=== PATIENT | male | born 1995 | race Caucasian/White ===

== ENCOUNTER 2018-05-06 11:17 | Emergency (ER) | payer BC ==
[2018-05-06] MEDS ORDERED: DIPH/PERTUSS(ACELL)/TETANUS VAC/PF 0.5 ML SYR (>=10YO) IM ONE (12:16)
--- NOTE | 2018-05-06 12:17 | ER Document Report ---
ED General - General Chief Complaint: Laceration Stated Complaint: CUT FINGER Time Seen by Provider: 05/06/18 12:04 TRAVEL OUTSIDE OF THE [place] IN LAST 30 DAYS: No - HPI Patient complains to provider of: Pain in the hand Onset: Other - 22-year-old otherwise healthy young man who presents for evaluation of pain in the right middle finger after having a chain attached to a plow hit it injuring the end of it without any other part of his hand. Came immediately thereafter, he is right-hand dominant, does work on the farm regularly. He denies any injury elsewhere. Denies any lightheadedness chest pain shortness of breath or other symptoms. Is uncertain when his last tetanus shot was. - Related Data Allergies/Adverse Reactions: No Known Allergies Allergy (Unverified 05/06/18 11:22) Past Medical History - General Information source: Patient - Social History Smoking Status: Current Every Day Smoker Chew tobacco use (# tins/day): No Frequency of alcohol use: Rare Drug Abuse: None Family History: None Patient has suicidal ideation: No Patient has homicidal ideation: No Renal/ Medical History: Denies: Hx Peritoneal Dialysis GI Medical History: Reports: Hx Gastroesophageal Reflux Disease Psychiatric Medical History: Reports: Hx Depression Review of Systems - Review of Systems -: Yes All other systems reviewed and negative Physical Exam - Vital signs Vitals: Temp Pulse Resp BP Pulse Ox 98.5 F 64 18 128/76 H 98 05/06/18 11:31 05/06/18 11:31 05/06/18 11:31 05/06/18 11:31 05/06/18 11:31 - General General appearance: Appears well In distress: None - HEENT Head: Normocephalic Eyes: Normal Conjunctiva: Normal Cornea: Normal Extraocular movements intact: Yes - Respiratory Respiratory status: No respiratory distress Chest status: Nontender Breath sounds: Normal Chest palpation: Normal - Cardiovascular Rhythm: Regular Heart sounds: Normal auscultation Murmur: No - Abdominal Inspection: Normal Distension: No distension Tenderness: Nontender - Back Back: Normal - Extremities General upper extremity: Other - The right upper extremity shows no obvious abnormality at the shoulder, elbow, wrist, the hand has intact sensation in the ulnar median and radial distribution, strong radial pulse The third digit demonstrates macerated tissue over the aspect of the fingernail, it is held in a slightly flexed position - Neurological Neuro grossly intact: Yes Cognition: Normal Orientation: AAOx4 Rena Coma Scale Eye Opening: Spontaneous Rena Coma Scale Verbal: Oriented [place] Coma Scale Motor: Obeys Commands [place] Coma Scale Total: 15 Course - Re-evaluation Re-evalutation: 05/06/18 17:17 22-year-old male with what appears to be injury to the nailbed in his right middle finger. We will obtain x-ray, will administer tetanus shot, will reinvestigate under better lighting. Following x-ray patient has an obvious deformity to the distal phalanx of his right middle digit, there is a small piece of entrapped bone, this is likely to be treated as an open fracture given that the nailbed seems to be involved. Patient is neurovascularly intact in the distal aspect of his right middle finger, there is capillary refill despite having the base of the nailbed injury. We will plan for this patient to undergo primary repair. Following a nerve block of the right middle digit probed and investigated under clear light and blood free field the middle finger, there is avulsed tissue along the edge on either side of the finger. The nail itself has been relatively impacted at the base, the nailbed however looks relatively intact. Given that the nailbed itself appears relatively well intact we will plan to use the nail as a stent following some cleaning and irrigation. Removed the nail, replaced into the nailbed, sutured in place utilizing 4-0 Prolene. Current plan will be for this patient to follow-up with orthopedics further hand specialist at 8 AM and 3 days. He was given a prescription for Keflex. Because of the concern for potential extensor tendon injury in the third digit patient was splinted in a hyperextended position. He was encouraged to follow-up as directed and return in case of any worsening. - Vital Signs Vital signs: Temp Pulse Resp BP Pulse Ox 97.7 F 63 18 114/50 L 98 05/06/18 15:42 05/06/18 15:42 05/06/18 15:42 05/06/18 15:42 05/06/18 15:42 Procedures - Immobilization Right Mid- Finger Pre-Proc Neuro Vasc Exam: Normal Immobilizer type: Other - Hyperextension splint middle finger Performed by: Provider, PCT Post-Proc Neuro Vasc Exam: Abnormal - Numbness in the distal aspect of the digit consistent with previous nerve block Alignment checked and good: Yes - Laceration/Wound Repair Right Mid- Finger 3rd digit Wound length (cm): 2 Wound's Depth, Shape: Nail-avulsed Laceration pre-procedure: Sterile PPE donned, Betadine prep applied Anesthetic type: 1% Lidocaine w/epi Volume Anesthetic (mLs): 8 Wound explored: Clean, No foreign body removed Irrigated w/ Saline (mLs): 1,000 Wound Debrided: Moderate Wound Repaired With: Other - Nail stenting Suture Size/Type: 4:0, Prolene Number of Sutures: 4 Layer Closure?: No Post-procedure wound care: Sterile dressing applied, Splint applied Post-procedure NV exam normal: No - Decreased sensation over the edge of the fingers Complications: No Discharge - Discharge Clinical Impression: 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 You had valuation including a physical exam and x-rays. Keep the splint in place until you are seen on Tuesday. Use the pain medication only as needed, use the antibiotic daily as prescribed. Return for any worsening pain or swelling, inability to move the arm, fevers or chills. Prescriptions: Cephalexin Monohydrate [Keflex 500 mg Capsule] 500 mg PO Q6H 5 Days #28 capsule Hydrocodone/Acetaminophen [[place] 5-325 mg Tablet] 1 tab PO Q8H #25 tablet Forms: Smoking Cessation Education, Return to Work Referrals: PATRICK LEPE MD [ACTIVE STAFF] - 05/09/18
[2018-05-06] MEDS ORDERED: LIDOCAINE 1%/EPINEPHRINE INJ 20 ML VIAL INJ ONE ×2 (12:57→13:39)
--- NOTE | 2018-05-06 13:32 | RADIOLOGY REPORT (SQ) ---
EXAM DESCRIPTION: FINGER RIGHT COMPLETED DATE/TIME: 05/06/2018 1:04 pm REASON FOR STUDY: finger frcature pulled by an chain on a tractor, laceration and obvious finger def ormity COMPARISON: None. NUMBER OF VIEWS: Three views. TECHNIQUE: AP, lateral, and oblique images acquired of the right 3rd finger LIMITATIONS: None. FINDINGS: MINERALIZATION: Normal. BONES: Acute transverse fracture, base right 3rd finger distal phalanx. There is palmar deviation o f the distal fracture fragment. No radiopaque foreign body. SOFT TISSUES: There is air in the right 3rd finger DIP joint. OTHER: No other significant finding. IMPRESSION: Transverse acute fracture right 3rd finger distal phalanx with palmar angulation of the distal fracture fragments. There is air in the right 3rd finger DIP joint. COMMENT: SITE OF TRAUMA/COMPLAINT MARKED/STAMP COMPLETED: Yes TECHNICAL DOCUMENTATION: JOB ID: [id number] [employer]- All Rights Reserved Reading location - IP/workstation name: [email or web address]
[2018-05-06 15:44] VITALS: BP 114/50
== END 2018-05-06 15:44 | disposition home or self-care (01) ==
LOC: ER 11:17
PROC: 0HQFXZZ Repair Right Hand Skin, External Approach (ICD-10-PCS; principal; 2018-05-06)
DX: S61.212A Laceration without foreign body of right middle finger without damage to nail, initial encounter (principal); W45.8XXA Other foreign body or object entering through skin, initial encounter; Y92.79 Other farm location as the place of occurrence of the external cause; F17.200 Nicotine dependence, unspecified, uncomplicated
CPT/HCPCS: 99283; 90471; 73140; 90715; 12001; J3490

== ENCOUNTER 2018-05-12 12:23 | Day surgery (SDC) | payer BC ==
[~2018-05-12 12:23] MED LIST: CEFAZOLIN 2 GM/D5W RTU 2 GM/50 ML RTUPB IV PRN
[2018-05-12] MEDS ORDERED: CEFAZOLIN 2 GM/D5W RTU 2 GM/50 ML RTUPB IV ONE (12:27)
[2018-05-12] MEDS ORDERED: ALBUTEROL SULFATE 0.083% NEB 2.5 MG/3 ML AMPUL NEB ONE (13:45)
[2018-05-12] MEDS ORDERED: BUPIVACAINE HCL 0.5 % INJ/PF 30 ML SDV ONE (13:49)
[2018-05-12] MEDS ORDERED: FENTANYL CITRATE INJ/PF 100 MCG/2 ML AMPUL ONE (14:22)
[2018-05-12] MEDS ORDERED: PROPOFOL INJ 200 MG/20 ML VIAL IV ONE ×2 (14:22→15:41)
[2018-05-12] MEDS ORDERED: MIDAZOLAM 2 MG/2 ML INJ ONE (14:23)
[2018-05-12] MEDS ORDERED: LIDOCAINE 1% INJ-PF (10 MG/ML) 30 ML SDV ONE (14:28)
[2018-05-12] MEDS ORDERED: OXYCODONE-ACETAMINOPHEN 5-325 MG TABLET PO PRN ×5 (14:48→15:40)
[2018-05-12] MEDS ORDERED: MEPERIDINE HCL/PF INJ 25 MG/1 ML DISP.SYRIN IV PRN ×2 (14:48→15:10)
[2018-05-12] MEDS ORDERED: PROMETHAZINE HCL INJ 25 MG/1 ML VIAL IV PRN ×4 (14:48→15:10)
[2018-05-12] MEDS ORDERED: FENTANYL CITRATE INJ/PF 100 MCG/2 ML AMPUL IV PRN ×6 (14:48→15:10)
[2018-05-12] MEDS ORDERED: DIPHENHYDRAMINE HCL 50 MG/ML VIAL IV PRN ×2 (14:48→15:10)
--- NOTE | 2018-05-12 15:37 | Discharge Summary ---
Discharge Summary (SDC) - Discharge Final Diagnosis: Right middle finger open distal phalanx fracture, nailbed laceration Date of Surgery: 05/12/18 Discharge Date: 05/12/18 Condition: Good Treatment or Instructions: Schedule Follow Up w/ Dr. Bryan Brink @ [facility] for Surgery to be seen in 10-14 days or as scheduled [place]: [place]: [place]: May remove dressing on postop day #3, keep incision covered and dry. Ice and elevate May begin finger range of motion attempting to make full fist, excluding DIP joint of the middle finger Stool softener of choice when on pain medication. Prescriptions: Oxycodone HCl/Acetaminophen [Percocet 5-325 mg Tablet] 1 tab PO Q6 PRN #25 tab PRN Reason: Discharge Diet: As Tolerated Respiratory Treatments at Home: Deep Breathing/Coughing Report the Following to Your Physician Immediately: Fever over 101 Degrees, Unusual Bleeding, Redness, Swelling, Warmth, Increased Soreness
[2018-05-12] MEDS ORDERED: ONDANSETRON HCL INJ/PF 4 MG/2 ML SDV IV PRN (15:40)
[2018-05-12] MEDS ORDERED: MORPHINE SULFATE 10 MG/ML INJ IV PRN (15:40)
--- NOTE | 2018-05-12 15:40 | Operative Report ---
Operative Report PREOPERATIVE DIAGNOSIS: Right middle finger open distal phalanx fracture, nailbed laceration POSTOPERATIVE DIAGNOSIS: Same OPERATION: Closed reduction percutaneous pinning distal phalanx fracture SURGEON: ASHLI BRYANT ANESTHESIA: LMAC COMPLICATIONS: None ESTIMATED BLOOD LOSS: Minimal PROCEDURE: Indication for above procedure: 22-year-old male who sustained a open fracture of his distal phalanx when he took got caught along the dorsal soft tissue of the proximal nail. Patient was seen at the emergency room the area was irrigated reapproximated the patient was started on antibiotics. He subsequently followed up at my office at which point we discussed treatment options including operative versus nonoperative intervention. Risks and benefits were explained patient verbalized understanding consented for the procedure. Procedure In Detail: Patient was seen and evaluated in the preoperative holding area. The RIGHT upper extremity was initialized and marked. Patient received 2g of Ancef IV for bacterial prophylaxis. Patient was taken back to the operative room where transferred to the operative table and placed under general anesthesia. Once they were adequately anesthetized a surgical team debriefing was performed ensuring all instrumentation was available, the surgical procedure was discussed with possible concerns reviewed. Digital block was performed utilizing 1% lidocaine without epinephrine. The upper extremity was prepped with chlorhexidine and alcohol and draped in a sterile fashion. A timeout was done identifying correct patient, procedure and extremity everyone in attendance agree with this and verbalized no concerns. A digital tourniquet was placed. The nail plate was removed. This was placed in Betadine and a soft tissue was removed. Inspection of the terminal and sterile matrix demonstrated no evidence of disruption this area was then irrigated with saline. A 0.045 K wire was placed dorsally into the dorsal fragment. The digit was then extended and a 0.045 K wire was placed transarticular through the DIP joint maintaining reduction of the intra-articular distal phalanx fracture. C-arm fluoroscopy was obtained which demonstrated acceptable reduction of the articular surface without evidence of subluxation. Pins were then cut just below the skin. The nail plate after being soaked in Betadine was placed underneath the proximal nail fold to allow nailbed healing without adherence. The nail plate was then secured with interrupted 4-0 chromic gut suture distally and along the nail folds. The area was then irrigated with saline once again. Xeroform, 2 x 2's and a loosely applied Coban was placed around the digit. Sponge counts, instrument counts, needle counts counts were correct. Patient was then awoken from anesthesia. Transferred from the operating room table to the operating room stretcher. There was no intraoperative complications patient tolerated procedure well stable to PACU. Postop plan: Patient will follow-up in the office 2 weeks postoperatively for wound check. Will obtain x-rays at that time. We will continue pins for 6 weeks.
--- NOTE | 2018-05-12 15:54 | RADIOLOGY REPORT (SQ) ---
EXAM DESCRIPTION: FINGER RIGHT; NO CHG FLUORO COMPLETED DATE/TIME: 05/12/2018 3:34 pm REASON FOR STUDY: PERC PINNING RT FINGER ASST WITH FLUORO IN OR COMPARISON: None. FLUOROSCOPY TIME: 25 seconds. Spot images saved to PACS. TECHNIQUE: Intra-operative images acquired during surgical procedure to evaluate progress. NUMBER OF IMAGES: 3 LIMITATIONS: None. FINDINGS: Fluoroscopy was provided for intraoperative procedure. Please refer to the operative repo rt for further discussion. IMPRESSION: IMAGE(S) OBTAINED DURING PROCEDURE. COMMENT: Quality ID [id number]: Final reports for procedures using fluoroscopy that document radiation exp osure indices, or exposure time and number of fluorographic images (if radiation exposure indices are not available) Please consult full operative report of the attending physician for description of the procedure. TECHNICAL DOCUMENTATION: JOB ID: [id number] [employer]- All Rights Reserved Reading location - IP/workstation name: [email or web address]
--- NOTE | 2018-05-12 15:54 | RADIOLOGY REPORT (SQ) ---
EXAM DESCRIPTION: FINGER RIGHT; NO CHG FLUORO COMPLETED DATE/TIME: 05/12/2018 3:34 pm REASON FOR STUDY: PERC PINNING RT FINGER ASST WITH FLUORO IN OR COMPARISON: None. FLUOROSCOPY TIME: 25 seconds. Spot images saved to PACS. TECHNIQUE: Intra-operative images acquired during surgical procedure to evaluate progress. NUMBER OF IMAGES: 3 LIMITATIONS: None. FINDINGS: Fluoroscopy was provided for intraoperative procedure. Please refer to the operative repo rt for further discussion. IMPRESSION: IMAGE(S) OBTAINED DURING PROCEDURE. COMMENT: Quality ID [id number]: Final reports for procedures using fluoroscopy that document radiation exp osure indices, or exposure time and number of fluorographic images (if radiation exposure indices are not available) Please consult full operative report of the attending physician for description of the procedure. TECHNICAL DOCUMENTATION: JOB ID: [id number] [employer]- All Rights Reserved Reading location - IP/workstation name: [email or web address]
[2018-05-12 17:40] VITALS: BP 133/73
== END 2018-05-12 17:35 | disposition home or self-care (01) ==
LOC: OROUT 12:23
PROVIDERS: ATTEND Orthopaedic Surgery
DX: M79.644 Pain in right finger(s) (principal); S62.632B Displaced fracture of distal phalanx of right middle finger, initial encounter for open fracture; X58.XXXA Exposure to other specified factors, initial encounter; F17.210 Nicotine dependence, cigarettes, uncomplicated; J45.909 Unspecified asthma, uncomplicated
CPT/HCPCS: 73140; 26756; C1713; J2250; J3490 ×2; J3010; J2704; J0690; 01830